=== PATIENT | female | born 1980 | race Caucasian/White ===

== ENCOUNTER 2019-03-01 16:30 | Inpatient (IN) | payer OTHER ==
--- NOTE | 2019-03-01 16:07 | HP ---
REASON FOR ADMISSION: Dysmenorrhea, menorrhagia, symplastic myoma. SCHEDULED PROCEDURE: Total abdominal hysterectomy with bilateral salpingectomy. HISTORY OF PRESENT ILLNESS: Ms. 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 She has had two children with C-sections because of her fibroids and does not desire future childbearing, she continues to have irregular bleeding, pressure, pain. She desires definitive surgical management. SPIRITUAL ADVISOR HISTORY: x2. Negative dysplasia history. No STD history. History of symplastic myoma. PAST MEDICAL HISTORY: None. SURGICAL HISTORY: Myomectomy and . ALLERGIES: DENIES. MEDICATIONS: vitamins. SOCIAL HISTORY: Denies tobacco, alcohol, or IV drug use. FAMILY HISTORY: Noncontributory. REVIEW OF SYSTEMS: Noncontributory. PHYSICAL EXAMINATION: GENERAL: White female 5 feet 5 inches, weight 175, BMI 29. VITAL SIGNS: Blood pressure 122/84, pulse 81, respirations 18. HEENT: Within normal limits. LUNGS: Clear to auscultation bilaterally. HEART: Regular rhythm. BREASTS: No masses bilaterally. ABDOMEN: Soft, nontender. No rebound or guarding. GENITOURINARY: Vulva without lesions. Vagina without discharge. Cervix nulliparous. Uterus anteverted, irregular, 16 week size. Adnexa, no masses bilaterally. EXTREMITIES: No clubbing, cyanosis, or edema. DIAGNOSTIC STUDIES: Ultrasound reveals the uterus measuring 14 x 11 x 8 cm with multiple fibroids. IUD was noted to be in correct placement. Largest fibroid measuring 8.8 cm in greatest diameter. Right ovary was not visualized. Left adnexa appeared normal on ultrasound. No free fluid noted. IMPRESSION: Multiple leiomyoma uteri, symptomatic with a history of symplastic myoma, desires definitive surgical management. PLAN: We will proceed with total abdominal hysterectomy with bilateral salpingectomy on 03/02. The patient understands risks and benefits of procedure. We will administer appropriate antibiotic and DVT prophylaxis. We will consult Anesthesia for TAP block preoperatively. Anticipate 2-day hospitalization. Job ID: [id number]
[2019-03-01 16:15] VITALS: BMI 28.3
[2019-03-02] MEDS ORDERED: Gabapentin 300 MG CAP ONE (09:47)
[2019-03-02] MEDS ORDERED: Famotidine/PF 20 mg/2ml Vial ONE (09:47)
[2019-03-02] MEDS ORDERED: ceFAZolin Sodium (SDC) 2 GM/100 ML BAG ONE (09:48)
[2019-03-02] MEDS ORDERED: CeleCOXIB 100 MG CAP ONE (09:48)
[2019-03-02] MEDS ORDERED: Midazolam HCl 2 mg/2 ml Vial ONE (09:55)
[2019-03-02] MEDS ORDERED: Fentanyl 100 MCG/2 ML VIAL ONE ×5 (09:55→13:55)
[2019-03-02] MEDS ORDERED: Dexamethasone 4 mg/ml Vial ONE (09:56)
[2019-03-02] MEDS ORDERED: HYDROmorphone 2 MG/ML VIAL ONE ×2 (11:20→13:56)
[2019-03-02] MEDS ORDERED: Promethazine HCl 25 MG/ML VIAL SLOW IVP PRN (12:39)
[2019-03-02] MEDS ORDERED: Meperidine HCl/PF 25 MG/ML VIAL SLOW IVP PRN (12:39)
[2019-03-02] MEDS ORDERED: Promethazine HCl 25 MG/ML VIAL IM PRN ×3 (12:39→15:16)
[2019-03-02] MEDS ORDERED: HYDROmorphone 2 MG/ML VIAL SLOW IVP PRN (12:39)
[2019-03-02] MEDS ORDERED: Zolpidem Tartrate 5 MG TAB PO PRN ×2 (13:39→15:16)
[2019-03-02] MEDS ORDERED: diphenhydrAMINE 25 MG CAP PO PRN ×2 (13:39→15:16)
[2019-03-02] MEDS ORDERED: Ondansetron PF 4 MG/2 ML Vial IVP PRN ×2 (13:39→15:16)
[2019-03-02] MEDS ORDERED: Naloxone HCl 0.4 mg/ml Vial IV PRN (13:39)
[2019-03-02] MEDS ORDERED: fentaNYL Citrate/PF 2,000 MCG in Sodium Chloride 0.9% 60 ML IV PRN (13:39)
[2019-03-02] MEDS ORDERED: diphenhydrAMINE 50 MG/ML VIAL IM/IV PRN (13:39)
[2019-03-02] MEDS ORDERED: Simethicone Chewable 80 MG TAB PO PRN (15:16)
--- NOTE | 2019-03-02 15:56 | OP ---
DATE OF PROCEDURE: 03/02/2019 PREOPERATIVE DIAGNOSES: Multiple leiomyoma uteri, pelvic pain, pressure, and menorrhagia. POSTOPERATIVE DIAGNOSES: Multiple leiomyoma uteri, pelvic pain, pressure, and menorrhagia. PROCEDURE PERFORMED: Total abdominal hysterectomy, bilateral salpingectomy, lysis of adhesions. HOUSE SUPERVISOR: Whitney Brooks DO ANESTHESIA: General endotracheal. ANESTHESIOLOGIST: Sudarshan Kim MD DRAINS: Kaur to gravity, clear urine at the end of the procedure. ESTIMATED BLOOD LOSS: 400 mL. MEDICATIONS: 2 g Ancef preincision. DVT prophylaxis SCDs. OPERATIVE FINDINGS: 1. Approximately 15 cm greatest diameter. Multiple leiomyomatous uterus with multiple adhesions, status post myomectomy and x2. 2. Small parasitic myomas noted in the pelvic sidewall, right and left. 3. Normal-appearing ovaries bilaterally. 4. Normal-appearing tubes bilaterally, removed. 5. Hemostasis, clear urine. COUNTS: Correct at the end of the procedure. DISPOSITION: Recovery room in good condition. DESCRIPTION OF OPERATIVE PROCEDURE: After obtaining appropriate informed consent, the patient was taken to the operating room, where general endotracheal anesthesia was achieved without difficulty after she received tap blocks for postoperative analgesia in Day Stay. She was prepped and draped in the usual manner for abdominal hysterectomy. Previous Pfannenstiel incision was identified, incised sharply and carried down to the fascia and the midline was incised sharply, extended superiorly and laterally with curved Antunez scissors. Rectus dissected off sharply, superiorly, and inferiorly, divided the midline. Peritoneum entered bluntly taking care to avoid trauma to the underlying viscera. Large Patel O retractor placed inside and bowel packed out of away with moist laparotomy sponges. The patient was placed in slight Trendelenburg position. Uterus was elevated. Adhesions were noted, especially involving the vesicouterine peritoneum and bladder to the lower uterine segment. The highest of these was taken down sharply. The round ligament was isolated on the patient's right, ligated and transected with 0 Vicryl suture. Window created underneath the broad ligament incorporating the uterine ovarian ligament. The fallopian tube was identified and clamps placed across the mesosalpinx and it was excised and sent for pathology. These were ligated with 0 Vicryl suture. Clamp was placed across utero-ovarian that was transected and ligated with 0 Vicryl suture. Skeletonization of the broad ligament was carried down to the level of the internal cervical os. Vesicouterine peritoneum was incised sharply and dissected off the lower uterine segment and cervix on that side. Galindo clamps placed across the uterine vessels, which were noted to be tortuous on this side. Multiple varicosity veins in the uterus had torn just manipulating upon the uterus and were responsible for the majority of the EBL during the case. Galindo clamp was placed across the uterine vessels at the level of the internal cervical os on the right, these were transected and ligated with 0 Vicryl suture and rendered hemostatic. At this point in time, attention was turned to the patient's left side where the identical procedure was carried out, again isolating and transecting the round with the ligature suture removing the fallopian tube, clamping across the utero-ovarian ligament and ligating it after transection, then skeletonization of the broad down to the level internal cervical os. Further sharp incision of the vesicouterine peritoneum was carried out, and with blunt and sharp dissection, the bladder was dissected completely off the lower uterine segment, cervix, and upper vagina. Galindo clamps were placed across the uterine vessels at the level internal cervical os on the patient's left and these were transected and ligated with 0 Vicryl suture. Malleable retractor was placed in the cul-de-sac and the specimen was amputated at the level of the internal cervical os. Double tooth tenaculum was applied across the cervical stump. Straight Lu's were then clamped across the cardinal ligaments bilaterally, transecting and ligating down to the level of the cervical vaginal interface. The bladder was noted to be well below this. At this level, Galindo clamp was placed across and the cervix was amputated using long-handled knife and Tushar scissors. Hofmeister stitches of 0 Vicryl were placed in apex bilaterally and the intervening vagina was closed using 1 interrupted [id number] 0 Vicryl pop-off. Suction irrigation was carried out. Small areas of bleeding along the anterior vagina were rendered hemostatic with Bovie cautery. Approximately, 8 mm fibroid was noted in the cardinal ligaments on the patient's left. This was grasped with Allis clamp, isolated from the uterine vessels and what noted to be well medial to the ureter on this side. It was dissected out bluntly and sharply with good hemostasis noted. Suction and irrigation were carried out and good hemostasis was noted throughout. FloSeal was applied across the pedicles of the cardinal ligament and the anterior vesicouterine peritoneal fold bilaterally. Pressure was held with a moist laparotomy sponge for 3 minutes, and re-inspection revealed good hemostasis. Round ligament pedicles were inspected on each side as well as the IP utero-ovarian pedicles were inspected and these were all noted to be dry as well. Retraction sponges were removed and the Patel O retractor removed. Counts were correct x2. The rectus was reapproximated using a 2-0 Vicryl, it was inspected and noted to be dry and the fascia reapproximated using 2-0 PDS sutures. Subcutaneous tissue irrigated and rendered hemostatic with Bovie cautery, reapproximated using a 2-0 plain gut. Counts were correct x2, and skin reapproximated using 4-0 Monocryl and Dermabond. The patient was awakened and extubated to recovery room in good condition. Job ID: [id number]
[2019-03-02] MEDS: Sodium Chloride 0.9% 1,000 ML IV SCH (16:11)
[2019-03-02] MEDS: Ketorolac Tromethamine 30 MG/ML VIAL IVP SCH (17:43)
[2019-03-02] MEDS: Acetaminophen 1,000 MG in Premix Bag 1 BAG IVPB SCH (18:24)
[2019-03-03] MEDS: Sodium Chloride 0.9% 1,000 ML IV SCH ×4 (00:01→22:51)
[2019-03-03] MEDS: Ketorolac Tromethamine 30 MG/ML VIAL IVP SCH ×4 (00:01→17:59)
[2019-03-03] MEDS: Acetaminophen 1,000 MG in Premix Bag 1 BAG IVPB SCH ×3 (00:23→12:21)
[2019-03-03 05:50] LABS: Hemoglobin 11.4 g/dL (12.0-16.0); Mean Corpuscular HGB CONC 35.5 g/dL (32.0-36.0); Mean Corpuscular Hemoglobin 32.5 pg (27.0-31.0); Mean Corpuscular Volume 91.7 fL (78.0-98.0); Mean Platelet Volume 7.8 fL (7.4-10.4); Platelet Count 138 thou/uL (130-400); Red Blood Cell (RBC) Count 3.51 mill/uL (4.20-5.40); White Blood Cell (WBC) Count 7.3 thou/uL (4.8-10.8)
[2019-03-03] MEDS ORDERED: HYDROcodone/Acetaminophen 5/325 mg Tablet PO PRN ×5 (08:10→16:38)
--- NOTE | 2019-03-03 08:29 | PRG ---
DATE OF SERVICE: 03/03/2019 TIME OF SERVICE: 0805 hours. SUBJECTIVE: The patient is resting comfortably. She just voided x1 volume of 400 mL, noted to be clear. The patient states that her nausea and vomiting from last night has resolved. PHYSICAL EXAMINATION: VITAL SIGNS: Temperature 98.3, T-max 98.8, pulse 71, respirations, blood pressure 113/77. Hematocrit is 32.2%. Preoperative hematocrit 38%. LUNGS: Clear to auscultation bilaterally. HEART: Regular rate and rhythm. ABDOMEN: Soft and nontender. Bowel sounds all 4 quadrants. Her incision is intact and dry with no bruising noted. Perineum is dry. EXTREMITIES: No clubbing, cyanosis, or edema. IMPRESSION: The patient is doing well, status post total abdominal hysterectomy, bilateral salpingectomy with an expected hematocrit drop, status post 400 mL estimated blood loss intraoperatively. The patient has adequate analgesia with tap block and fentanyl PCI. PLAN: Advance diet, ambulate, and anticipate Anesthesia discontinuing MANAGER REVENUE later today. Orders for [place] 5 mg as needed post MANAGER REVENUE have been entered. Anticipate probable discharge home on 8:17 p.m. We will check out the patient's care to doctors Luis and KAYLI Gomez hospitalist on 03/03 and 03/04. Job ID: [id number]
[2019-03-03] MEDS ORDERED: Fentanyl 100 MCG/2 ML VIAL SLOW IVP PRN (16:38)
[2019-03-03] MEDS: HYDROcodone/Acetaminophen 5/325 mg Tablet PO PRN (19:43)
[2019-03-04] MEDS: HYDROcodone/Acetaminophen 5/325 mg Tablet PO PRN (00:29)
[2019-03-04] MEDS: Ketorolac Tromethamine 30 MG/ML VIAL IVP SCH ×2 (00:29→06:39)
[2019-03-04 00:42] VITALS: TEMP 98.2
[2019-03-04 06:53] VITALS: BP 101/63
--- NOTE | 2019-03-05 01:03 | DIS ---
DATE OF ADMISSION: 03/02/2019 DATE OF DISCHARGE: 03/04/2019 ADMITTING DIAGNOSES: 1. Pelvic pain. 2. Menorrhagia. 3. Multiple leiomyoma uteri. DISCHARGE DIAGNOSES: 1. Pelvic pain. 2. Menorrhagia. 3. Multiple leiomyoma uteri. PROCEDURE: Total abdominal hysterectomy with salpingo-oophorectomy and lysis of adhesions. CONSULTATIONS: None. HOSPITAL COURSE: The patient is a 38-year-old female who presented on 03/02/2019, for a scheduled total abdominal hysterectomy for the above diagnoses. For complete details, please refer to the operative note. Her postoperative course has been uncomplicated. She is now postoperative day #2. Reports that she is having good pain control, having some spotting. Has had a bowel movement, passing gas, tolerating diet and is ambulating. LABORATORY DATA: Her postdelivery hemoglobin is 11.4, hematocrit 32.2. DISCHARGE INSTRUCTIONS: She has instructions to make a followup appointment with Dr. Nikita Resendiz in 2 weeks for routine postoperative care or sooner if she experiences fever, increasing pain or bleeding, redness, or drainage at the incision site. Prescriptions have been already submitted by Dr. Resendiz to the pharmacy and/or in the hands of the patient and her family. The patient has also been counseled on a 15-pound weight limit for the next 4 to 6 weeks. Job ID: [id number]
== END 2019-03-04 08:30 | disposition home or self-care (01) | DRG 743 ==
LOC: SURG A 03-02 09:25 → 3SE 03-02 15:23
PROVIDERS: ADMIT Obstetrics & Gynecology; ATTEND Obstetrics & Gynecology
PROC: 0UT90ZZ Resection of Uterus, Open Approach (ICD-10-PCS; principal; 2019-03-02)
PROC: 0UT70ZZ Resection of Bilateral Fallopian Tubes, Open Approach (ICD-10-PCS; 2019-03-02)
DX: D25.9 Leiomyoma of uterus, unspecified (principal); N94.6 Dysmenorrhea, unspecified; N92.0 Excessive and frequent menstruation with regular cycle
CPT/HCPCS: 36415; 84703; 85027; 86850; 86900; 86901; 88307; J0131; J0690; J1100; J1170; J1885; J2250; J2405; J3010; J3490; S0028